=== PATIENT | female | born 1995 | race Caucasian/White ===

== ENCOUNTER → 2017-06-15 | Outpatient (CLI) | payer MEDICAID ==
[~2017-06-15] MED LIST: FAMVIR 500500 MG/TAB PO; MOTRIN 600600 MG/TAB PO; NORCO 325 MG-51 TAB PO; ORTHO TRI-CYCLE1 TA2; PERCOCET 325 MG1 TA2 PO; PREDNISONE10 MG PO; PRENATAL1 TA1 PO; TYLENOL 325MG325 MG PO; VALTREX1 GM PO
== END ==
LOC: MC.RAD 08:48
DX: N63.20 Unspecified lump in the left breast, unspecified quadrant (principal)

== ENCOUNTER → 2018-10-25 | Outpatient (CLI) | payer MEDICAID | LOC: COL.RAD 10-23 09:45 | DX: R10.11 Right upper quadrant pain (principal) ==

== ENCOUNTER 2018-11-25 13:52 | Emergency (ER) | payer MEDICAID ==
[~2018-11-25] VITALS: Ht 170.2 cm; Wt 63.6 kg
[2018-11-25 13:56] VITALS: BP 113/57; TEMP 98.3
[2018-11-25] MEDS ORDERED: CONCEPT DHA1 CAP (14:23)
[2018-11-25 15:29] LABS: COLLECTION METHOD CLEAN CATCH
[2018-11-25 15:36] LABS: BASO % 0.3 % (0.0-2.0); EOS # 0.1 (0.0-0.7); EOS % 0.5 % (0-4.0); GRAN # 10.1 (1.4-6.5); GRAN % 73.5 % (42.2-75.2); HEMOGLOBIN 13.7 g/dl (12.5-16.0); LYMPH # 2.5 (1.2-3.4); MEAN CELL VOLUME 93 fl (80.0-100.0); MEAN CORPUSCULAR HEMOGLOBIN 33 pg (27.0-31.0); MEAN CORPUSCULAR HGB CONC 35 g/dl (33.0-37.0); MEAN PLATELET VOLUME 9.7 fl (7.4-10.4); MONO % 7.3 % (1.7-9.3); PLATELET COUNT 249 K/mm3 (130-400); RED BLOOD COUNT 4.21 M/mm3 (4.10-5.30); REDCELL DISTRIBUTION WIDTH-CV 12.6 % (11.5-14.5)
[2018-11-25 15:42] LABS: MUCOUS Present /lpf; PH 5 (5-8); URINE APPEARANCE Cloudy; URINE BACTERIA Rare /hpf; URINE BILIRUBIN Negative (NEGATIVE); URINE BLOOD 2+ (NEGATIVE); URINE COLOR Yellow; URINE GLUCOSE Negative (NEGATIVE); URINE KETONE Trace (NEGATIVE); URINE LEUKOCYTE ESTERASE 2+ (NEGATIVE); URINE NITRATE Negative (NEGATIVE); URINE PROTEIN(semi-quant) 2+ (NEGATIVE); URINE RBC >50 /hpf; URINE UROBILINOGEN Negative (NEGATIVE)
[2018-11-25 15:45] LABS: ALBUMIN 3.8 gm/dL (3.5-5.0); BILIRUBIN,TOTAL 0.6 mg/dL (0.0-1.0); CREATININE, serum 0.44 (0.52-1.25); POTASSIUM 3.7 mmol/L (3.4-5.0); TOTAL PROTEIN 7.3 gm/dL (6.4-8.2)
[2018-11-25] MEDS ORDERED: CEFTIN500 MG PO (16:19)
[2018-11-25 17:35] VITALS: PULSE 79
== END 2018-11-25 17:35 | disposition home or self-care (01) ==
LOC: COL.ER 13:52
PROVIDERS: Emergency Medicine
DX: O46.92 Antepartum hemorrhage, unspecified, second trimester (principal); O23.92 Unspecified genitourinary tract infection in pregnancy, second trimester; Z87.891 Personal history of nicotine dependence; Z3A.19 19 weeks gestation of pregnancy
CPT/HCPCS: A4216; J0696; J7030

== ENCOUNTER 2019-02-19 17:14 | Outpatient (CLI) | payer MEDICAID ==
[~2019-02-19] VITALS: Ht 170.2 cm; Wt 70.9 kg
[~2019-02-19 17:14] MED LIST changes: +CEFTIN500 MG PO; +CONCEPT DHA1 CAP
--- NOTE | 2019-02-19 17:20 | NUR ---
Pt arrives on unit ambulatory. States vaginal bleeding that began at 1100 after working with 20lbs. Vaginal pressure began at 1200. Reports GFM. Denies LOF. Changed into clean gown. EFM and toco applied. VSS. SVE per this RN CL/80/-3. No blood noted on glove. Admission assessment completed. Pt updated on POC. Safety reviewed. Bed locked in low position. Call light within reach. No questions or concerns at this time.
--- NOTE | 2019-02-19 17:30 | NUR ---
Pt reports bleeding at 1100 soaking pad every 1.5 hours. Since 1500 bleeding has stopped. Pt states hemorrhoids yesterday that bled heavily. Ibuprofen 400mg was taken at 1200 this afternoon.
[2019-02-19 18:00] VITALS: BP 115/59; PULSE 93; TEMP 98
[2019-02-19 18:30] VITALS: BP 104/68; PULSE 78
--- NOTE | 2019-02-19 18:30 | NUR ---
SVE by this RN /-3 with no bleeding noted on pad or during exam. Information reviewed with Dr. Adame. FHR tracing reviewed. Orders for discharge home with pelvic rest and no work until pt is seen in office with Dr Adame next Monday02/26/19. Discharge instructions and precautions reviewed with pt. Pt verbalized an understanding, agreed with the plan and states no questions or concerns at this time.
== END 2019-02-19 19:05 | disposition home or self-care (01) ==
LOC: LDRO 17:14
DX: O46.93 Antepartum hemorrhage, unspecified, third trimester (principal); Z3A.31 31 weeks gestation of pregnancy

== ENCOUNTER 2019-04-12 14:04 | Outpatient (CLI) | payer MEDICAID ==
[~2019-04-12] VITALS: Ht 167.6 cm; Wt 75.9 kg
--- NOTE | 2019-04-12 14:15 | NUR ---
1415-38.4WEEK G3L[address] PATIENT [address] AGUILERA TO UNIT WITH COMPLAINTS OF CONTRACTIONS ON AND OFF SINCE 1100, REPORTS NO BLEEDING AND GOOD MOVEMENT. ASSISTED INTO GOWN AND ONTO EFM. VSS, AMNITEST NEG. SVE /2 VERY POSTERIOR, UPDATED ON PLAN OF CARE, ASSESSMENT COMPLETE. 1437-DR. WOODS UPDATED, SEE PHYSICIAN NOTIFICATION. 1520-RECHECKED CERVIX, UNCHANGED. 1526-UPDATED ON MD ORDER TO D/C HOME IF UNCHANGED VERBALIZED UNDERSTANDING AND REPORTS NO CHANGE IN INTENSITY OF PAIN OR CONTRACTIONS. OFF EFM 1530-REVIEWED EARLY LABOR AND DISCOMFORTS OF PREGANANCY WITH PATIENT, REVIEWED WHEN TO RETURN. DENIES QUESTIONS 1535-AMBULATORY OFF UNIT WITH BOYFRIEND.
[2019-04-12 14:30] VITALS: BP 106/74; PULSE 101; TEMP 98
[2019-04-12 14:51] VITALS: BP 106/74; PULSE 101; TEMP 98
[2019-04-12 15:00] VITALS: BP 106/57; PULSE 80
== END 2019-04-12 15:35 | disposition home or self-care (01) ==
LOC: LDRO 14:04 → LDR 14:15 → LDRO 15:35
DX: O62.9 Abnormality of forces of labor, unspecified (principal); Z3A.38 38 weeks gestation of pregnancy
CPT/HCPCS: OP

== ENCOUNTER 2019-04-24 13:27 | Inpatient (IN) | payer MEDICAID ==
[2019-04-24] VITALS (32 sets, daily range): BP systolic 104–142; BP diastolic 55–82; PULSE 71–102; TEMP 97.4–97.7
[~2019-04-24] VITALS: Ht 167.6 cm; Wt 79.5 kg
--- NOTE | 2019-04-24 13:30 | NUR ---
Pt arrives on unit ambulatory for SROM at 1145 with clear fluid. . TOLAC. Changed into clean gown. EFM and toco applied. VSS. Amniotest positive. SVE per this RN /2. Dr. Adame notified. See physician notification. Admission assessment completed. Pt updated on POC. Safety reviewed. No questions or concerns at this time.
[2019-04-24 14:49] LABS: BASO % 0.2 % (0.0-2.0); EOS # 0.1 (0.0-0.7); EOS % 0.6 % (0-4.0); GRAN # 9.8 (1.4-6.5); GRAN % 71.1 % (42.2-75.2); HEMATOCRIT 37.2 % (37.0-47.0); HEMOGLOBIN 12.7 g/dl (12.5-16.0); LYMPH # 2.3 (1.2-3.4); LYMPH % 16.8 % (20.0-51.0); MEAN CELL VOLUME 93 fl (80.0-100.0); MEAN CORPUSCULAR HEMOGLOBIN 32 pg (27.0-31.0); MEAN CORPUSCULAR HGB CONC 34 g/dl (33.0-37.0); MONO # 1.4 (0.1-0.6); MONO % 10.4 % (1.7-9.3); PLATELET COUNT 274 K/mm3 (130-400); REDCELL DISTRIBUTION WIDTH-CV 13.1 % (11.5-14.5)
--- NOTE | 2019-04-24 17:16 | NUR ---
Pt sitting upright for epidural placement. Difficulty tracing FHR due to maternal position. RN at bedside adjusting monitors. FHR audible.
--- NOTE | 2019-04-24 20:10 | NUR ---
RN to bedside for SVE. Complete and +[address] Adame called for delivery see physician notification.
--- NOTE | 2019-04-24 20:20 | NUR ---
Christie catheter removed. 125 mL clear yellow urine. Pt positioned to wedge right for comfort. Room being set up for delivery.
--- NOTE | 2019-04-24 20:50 | NUR ---
2029 - Dr. Adame gowned and gloved at perineum. Pt positioned into footplates. Educated on pushing techniques. Initial push at this time. 2039 - Pt pushing well with contractions. Dr. Adame remains at perineum. Recurrent variable decelerations down to 90 bpm noted with pushes with spontaneouse return to baseline of 130 after pushing ended. 2049 - Spontaneous delivery of viable boy. Infant placed on mothers abdomen. Care of assumed to Liliana Barlow, Nursery RN. Cord clamped x [address] Adame and cut by FOB. Pitocin off. 2053 - Spontaneous delivery of intact placenta. Fundal massage started, fundus firm and down 1 from umbilicus. Pitocin restarted at 333 mL/hr per protocol. Perineum intact per Dr. Adame. 2054 - Fundal massage by this RN, free flow bleeding noted but fundus firm. Dr. Adame remains at bedside evaluating. 2099 - Bleeding improved with fundal massage. Pericare provided. Ice pack to perineum. New chux beneath patient. Pt repositioned in bed for comfort. Pt desires epidural catheter be removed now. Removed without difficulties. Tip smooth, blue, and intact. recovery started. See delivery note.
--- NOTE | 2019-04-24 23:30 | NUR ---
Pt able to lift and hold each leg off of bed for 5 seconds. Pt able to ambulate to bathroom independently. Pt unable to void at this time. Pericare explained and provided. Mesh panties and peripad applied. New gown on. Pt able to ambulate to room 207 independently with belongings and infant.
[2019-04-25 01:25] VITALS: BP 102/51; PULSE 101; TEMP 98.4
[2019-04-25 05:25] VITALS: BP 99/51; PULSE 75; TEMP 98.3
[2019-04-25 07:28] LABS: HEMATOCRIT 32.1 % (37.0-47.0)
[2019-04-25 08:00] VITALS: BP 98/57; PULSE 64
[2019-04-25 16:44] VITALS: BP 104/61; PULSE 93
[2019-04-25 18:40] VITALS: BP 110/60; PULSE 98; TEMP 98.5
[2019-04-25 22:00] VITALS: BP 100/59; PULSE 69; TEMP 98.4
[2019-04-26 08:45] VITALS: BP 107/61; PULSE 97; TEMP 98.5
[2019-04-26] MEDS ORDERED: IBU600 MG PO (09:29)
== END 2019-04-26 13:50 | disposition home or self-care (01) | DRG 807 ==
LOC: LDRO 13:27 → OB 13:30 → LDR 13:30 → OB 23:54
PROVIDERS: ADMIT Obstetrics & Gynecology
PROC: 10E0XZZ Delivery of Products of Conception, External Approach (ICD-10-PCS; principal; 2019-04-24)
DX: O42.02 Full-term premature rupture of membranes, onset of labor within 24 hours of rupture (principal); Z37.0 Single live birth; Z3A.40 40 weeks gestation of pregnancy; O34.211 Maternal care for low transverse scar from previous cesarean delivery; O48.0 Post-term pregnancy; O99.824 Streptococcus B carrier state complicating childbirth; K21.9 Gastro-esophageal reflux disease without esophagitis; O99.62 Diseases of the digestive system complicating childbirth; Z87.891 Personal history of nicotine dependence; O26.893 Other specified pregnancy related conditions, third trimester; Z67.91 Unspecified blood type, Rh negative
CPT/HCPCS: J2540; J2590; J2791; J2795; J7120